=== PATIENT | female | born 1945 | race Caucasian/White ===

== ENCOUNTER → 2024-03-12 10:16 | Outpatient (REF) | payer OTHER, SELFPAY | LOC: RAD 10:16 | PROVIDERS: ATTENDING PHYSICIAN Internal Medicine Endocrinology, Diabetes & Metabolism; FAMILY PHYSICIAN Family Medicine | DX: E04.2 Nontoxic multinodular goiter (principal) | CPT/HCPCS: 76536 ==

== ENCOUNTER → 2025-04-09 14:29 | Outpatient (REF) | payer OTHER, SELFPAY | LOC: RCS 14:29 | PROVIDERS: ATTENDING PHYSICIAN Physician Assistant; FAMILY PHYSICIAN Family Medicine | DX: I49.9 Cardiac arrhythmia, unspecified (principal) | CPT/HCPCS: 93005 ==

== ENCOUNTER → 2025-08-22 11:10 | Outpatient (REF) | payer OTHER, SELFPAY | LOC: RCS 11:10 | PROVIDERS: ATTENDING PHYSICIAN Physician Assistant | DX: R01.1 Cardiac murmur, unspecified (principal) | CPT/HCPCS: 93306 ==

== ENCOUNTER 2025-09-17 10:53 | Emergency (ER) | payer OTHER, SELFPAY ==
[2025-09-17 10:56] VITALS: BP 156/72
--- NOTE | 2025-09-17 11:51 | ED.MUSCINJ ---
HPI-Injury
General
Chief Complaint: Fall
Source: patient
Exam Limitations: none
Time Seen by Provider: 09/17/25 11:40
History of Present Illness-Injury
Initial Injury comments:
80-year-old female not anticoagulated with history of hypothyroidism presents after a fall she sustained last evening. She was falling asleep at the dinner table and fell off her chair struck her head on the floor and complains of left rib pain and
left small finger swelling and comfort. She also notes leg swelling. Her daughter states she has been as ambulatory as usual. She was at the neurology office yesterday being evaluated for some type of dementia or cognitive decline. There has
been no weight gain. She denies orthopnea.
Past History
Past History
ED Past Medical History: Other (IBS)
ED Past Surgical History: Gynecological (partial hysterectomy)
Social History
Drug: None
Phy Exam
Physical Exam
Physical Exam:
General: Well-appearing female no acute respiratory distress
HEENT: Normal cephalic atraumatic there is an abrasion noted to the right side of the forehead pupils equal round reactive to light
Heart: Regular rate and rhythm
Lungs: Breath sounds heard bilaterally
Skin warm no rash
Extremities pitting edema bilateral lower extremities
Musculoskeletal exam: The patient is tender over the left lateral ribs as well as the left small finger
Injury Course
Orders/Labs/Results
Orders:
Orders
09/17/25 11:01
EKG [Electrocardiogram (*1)] Urgent
Reason for Study: Syncope
EKG- Treatment ONCE
09/17/25 11:50
CT Head W/o Iv Contrast Urgent
Comment:
Reason For Exam: fall
CR Hand - Left Min 3 Views Urgent
Comment:
Reason For Exam: fall, small finger pain
CR Ribs-left 3 Vw W/pa Chest Urgent
Comment:
Reason For Exam: fall
09/17/25 11:57
Complete Blood Count/With Diff Urgent
Comprehensive Metabolic Panel Urgent
NT-proBNP Urgent
Abnormal Lab Results
09/17/25
11:57
RBC 3.81 L 10^6/uL
(4.20-5.40)
Hgb 11.2 L g/dL
(12.0-16.0)
Hct 34.3 L %
(37.0-47.0)
MCHC 32.7 L g/dL
(33.0-37.0)
Absolute Lymphs (auto) 1.0 L 10^3/uL
(1.2-3.4)
Absolute Monos (auto) 0.9 H 10^3/uL
(0.1-0.6)
Lymphocytes % 17.1 L %
(20.5-51.1)
Monocytes % 16.0 H %
(1.7-9.3)
BUN 23 H mg/dl
(7-17)
ALT 38 H U/L
(0-35)
Total Protein 6.2 L g/dl
(6.3-8.2)
09/17/25 11:57
09/17/25 11:57
MDM/Problems Addressed
Differential Diagnosis Includes:
Patient here after a fall she sustained last evening. There was head strike. CT ordered to evaluate for fracture or intracranial hemorrhage. X-rays left ribs and left hand pending. Patient's legs are swollen which could be from heart dysfunction
however she recently had an echocardiogram dated August 22 of this year which demonstrates normal ventricular size and function. The ejection fraction was 60 to 65%. Edema otherwise could be dependent edema but will obtain BNP and x-ray of the
chest today
*Pulse Oximetry
SaO2: 98
Oxygen Mode of Delivery: Room air
Patient hypoxic: no
*Critical Care Note
Total Time (30-74mins, 75-104mins- exclusive of procedures): Not Applicable
Update Note
Update Note:
CT head negative x-ray left ribs and chest negative x-ray left hand shows hyperextension at the PIP joint of the small finger to suggest ligamentous injury but no fracture noted. Reassuring workup in the blood. At this point no indication for
admission. Will place a splint on the patient's finger and have her follow-up with orthopedics but otherwise stable for discharge
ED Attending Note
-
Portions of this chart may have been created with voice recognition software.� Occasional wrong word or��sound alike� substitutions may have occurred due to the inherent limitations of voice recognition software.
Discharge Plan
Departure
Patient Disposition: Home (Routine Discharge)
Date of Disposition: 09/17/25
Time of Disposition: 13:40
Patient with high blood pressure during this ER visit?: No
Discharge Problem:
Contusion, Sprain of finger
Instructions: Contusion (DC)
Prescriptions:
No Action
levothyroxine 125 MCG tablet
67.5 mcg PO DAILY
Patient Comments:
Takes 1/2 tablet of a 125 mcg pill
Vitamin B Complex with C
1 tab PO DAILY
calcium carbonate 500 MG tablet
500 mg PO DAILY AT 0700
vitamin E 400 UNIT capsule
400 unit PO DAILY AT 0700
cholecalciferol (vitamin D3) [Vitamin D3] 1,000 UNIT capsule
1,000 unit PO DAILY AT 0700
ascorbic acid (vitamin C) 500 MG capsule
500 mg PO DAILY AT 0700
L.acidoph,paracasei,B.animalis 1 EACH capsule
1 ea PO DAILY AT 0700
Magnesium 250 MG Tablet
500 mg PO DAILY AT 0700
Referrals:
Courtney Wong PA [Family Provider, Family Practice]
Betito Choudhary MD [Active, Orthopedics]
Activity Restrictions/Additional Instructions:
Rest. Ice to the finger. Keep splint on and follow-up with orthopedics.
Interventions
Interventions:
*Risk Screen - Suicide Last Done: 09/17/25 10:56
*General Assessment Last Done: 09/17/25 11:19
*Neglect/Abuse Screening Last Done: 09/17/25 10:56
*ED- Fall Risk Assessment Last Done: 09/17/25 11:19
ED-Musculoskeletal Assessment Last Done: 09/17/25 11:19
ED- Neurological Assessment Last Done: 09/17/25 11:19
ED-Skin Assessment Last Done: 09/17/25 11:19
Discharge Date and Time
Print Language: GREENLANDIC
[2025-09-17 12:10] LABS: Hematocrit 34.3 % (37.0-47.0); Hemoglobin 11.2 g/dL (12.0-16.0); Mean Corp Hgb Conc. 32.7 g/dL (33.0-37.0); Mean Corpuscular Volume 90.0 fL (81.0-99.0); Nucleated Red Blood Cells % 0 %; Platelet Count 217 10^3/uL (130-400); Red Cell Dist. Width 13.7 % (11.5-14.5)
[2025-09-17 12:34] LABS: ALT (SGPT) 38 U/L (0-35); AST (SGOT) 35 U/L (14-36); Albumin 3.8 g/dl (3.5-5.0); Alkaline Phosphatase 70 U/L (38-126); Blood Urea Nitrogen 23 mg/dl (7-17); Calcium 8.8 mg/dl (8.4-10.2); Carbon Dioxide 30 mmol/L (22-30); Chloride 106 mmol/L (98-107); Glucose 86 mg/dl (70-99); Potassium 4.0 mmol/L (3.5-5.1); Sodium 141 mmol/L (135-145); Total Protein 6.2 g/dl (6.3-8.2); eGFR > 60.00
[2025-09-17 13:08] VITALS: BP 140/70
== END 2025-09-17 14:00 | disposition home or self-care (01) ==
LOC: EMR 10:53
PROVIDERS: Physician Assistant; EMERGENCY PHYSICIAN Emergency Medicine; FAMILY PHYSICIAN Physician Assistant
DX: S60.052A Contusion of left little finger without damage to nail, initial encounter (principal); S63.617A Unspecified sprain of left little finger, initial encounter; W07.XXXA Fall from chair, initial encounter; E03.9 Hypothyroidism, unspecified; K58.9 Irritable bowel syndrome, unspecified
CPT/HCPCS: 99284; 29130; 70450; 71101; 73130; 80053; 83880; 85025; 93005

== ENCOUNTER → 2025-10-11 11:46 | Outpatient (REF) | payer OTHER, SELFPAY | LOC: MRI 3T 11:46 | PROVIDERS: ATTENDING PHYSICIAN Psychiatry & Neurology Neurology; FAMILY PHYSICIAN Family Medicine | DX: R41.3 Other amnesia (principal) | CPT/HCPCS: 70553; A9575 ==